=== PATIENT | female | born 1935 | race Caucasian/White ===

== ENCOUNTER 2017-08-13 13:02 | Emergency (ER) | payer MEDICARE ==
[2017-08-13 13:53] VITALS: BP 119/62
--- NOTE | 2017-08-13 15:04 | UC ---
Lower Extremity/Ankle HPI - HPI Summary HPI Summary: C/O right foot pain for the last 2 months. Worse in the last 2 days, especially with walking. - History of Current Complaint Chief Complaint: UCLowerExtremity Stated Complaint: RIGHT FOOT PAIN Time Seen by Provider: 08/13/17 14:58 Hx Obtained From: Patient Onset/Duration: Gradual Onset, Lasting Weeks - 8, Worse Since - yesterday. Severity Initially: Mild Severity Currently: Moderate Aggravating Factor(s): Standing, Ambulation Alleviating Factor(s): Rest, OTC Meds Able to Bear Weight: Yes - Risk Factors Gout Risk Factors: Age Over 40 Septic Arthritis Risk Factor: Extremes of Age - Allergies/Home Medications Allergies/Adverse Reactions: Allergies Allergy/AdvReac Type Severity Reaction Status Date / Time No Known Allergies Allergy Verified 08/13/17 13:43 Home Medications: Home Medications Acetaminophen TAB* [Tylenol TAB*] 650 mg PO Q4H PRN 08/13/17 [History Confirmed 08/13/17] Warfarin TAB(*) [Coumadin TAB(*)] 5 mg PO DAILY 08/13/17 [History Confirmed 10/29] PMH/Surg Hx/FS Hx/Imm Hx Cardiovascular History: Cardiac Disease Cancer History: Breast Cancer - Surgical History Surgical History: Yes Surgery Procedure, Year, and Place: Left breast lumpectomy, Pacemaker, Cardiac Ablation - Family History Known Family History: Positive: Cardiac Disease Negative: Hypertension, Diabetes - Social History Occupation: Retired Lives: Alone Alcohol Use: Daily Alcohol Amount: GLASS OF WINE Substance Use Type: None Smoking Status (MU): Former Smoker Type: Cigarettes Have You Smoked in the Last Year: No When Did the Patient Quit Smoking/Using Tobacco: 48 YEARS AGO Review of Systems Musculoskeletal: Arthralgia - right foot Is Patient Immunocompromised?: No All Other Systems Reviewed And Are Negative: Yes Physical Exam Triage Information Reviewed: Yes Appearance: Well-Appearing, No Pain Distress, Well-Nourished Vital Signs: Initial Vital Signs Temp 97.1 F 08/13/17 13:45 Pulse 82 08/13/17 13:45 Resp 20 08/13/17 13:45 BP 119/62 08/13/17 13:45 Pulse Ox 99 08/13/17 13:45 Vital Signs Reviewed: Yes Eyes: Positive: Conjunctiva Clear Neck exam: Normal Respiratory Exam: Normal Cardiovascular Exam: Normal Musculoskeletal: Positive: ROM Limited @ - right foot with moderate hallux valgus deformity on the right, Other: - Tenderness along the medial plantar surface of the foot and also over the medial bones. Neurological Exam: Normal Psychological Exam: Normal Skin: Positive: rashes - chronic venous stasis changes over both lower extremities Diagnostics - Radiology No standard instances Xray Interpretation: No Acute Changes Radiology Interpretation Completed By: ED Physician Lower Extremity Course/Dx - Differential Dx/Diagnosis Differential Diagnosis/HQI/PQRI: Arthritis, Sprain, Strain, Tendonitis, Tenosynovitis Provider Diagnoses: Plantar fasciitis right foot. Discharge - Discharge Plan Condition: Stable Disposition: HOME Patient Education Materials: Plantar Fasciitis (ED), Plantar Fasciitis Exercises (ED) Referrals: Bill De La Torre DO [Primary Care Provider] - Additional Instructions: 1. No bare feet. Get out of bed and put your feet into something with a molded foot bed, like crocs or birkenstocks. 2. I would recommend Superfeet arch supports to be fitted at [facility] on [facility]. 3. Follow up with the orthopedist if the pain is not improving.
--- NOTE | 2017-08-13 15:50 | RAD ---
INDICATION: Medial foot pain with ambulation COMPARISON: None. TECHNIQUE: 3 views of the right foot were obtained. FINDINGS: Degenerative changes of the right great toe metatarsal phalangeal joint include sclerotic bony remodeling and subchondral lucencies. There is approximately 53 degrees of valgus angulation at the joint. Degenerative changes are seen elsewhere including joint space narrowing and sclerotic change of the tarsometatarsal joints and intertarsal joints. There is an enthesophyte at the origin of the plantar fascia on the calcaneal tubercle. IMPRESSION: DEGENERATIVE CHANGES DESCRIBED ABOVE WELL RIGHT GREAT TOE HALLUX VALGUS. If the patient's symptoms persist, follow-up imaging is recommended.
== END 2017-08-13 15:41 | disposition home or self-care (01) ==
LOC: UCCORT 13:02
DX: M72.2 Plantar fascial fibromatosis (principal); I51.9 Heart disease, unspecified; Z79.01 Long term (current) use of anticoagulants; Z95.0 Presence of cardiac pacemaker; Z85.3 Personal history of malignant neoplasm of breast; Z87.891 Personal history of nicotine dependence
CPT/HCPCS: 99211; G0463